=== PATIENT | male | born 1990 | race Hispanic/Latino ===

== ENCOUNTER 2023-04-11 18:39 | Emergency (ER) | payer SELFPAY ==
[2023-04-11 18:42] VITALS: BP 148/86; PULSE 72; RESP 18; TEMP 36.5; O2SAT 99
[2023-04-11 18:59] VITALS: BMI 29.8
[2023-04-11 19:03] VITALS: BP 137/78; PULSE 77; RESP 23
[2023-04-11] MEDS: predniSONE 20 MG Tablet 60 MG PO (19:18)
--- NOTE | 2023-04-11 19:24 | EDS_ITS ---
HPI History of Present Illness Chief Complaint: Numb/Ting Informant: patient and friend Narrative Narrative: Patient presents with left facial weakness. He he states it feels heavy. Of note, he brings a friend with him that speaks Micronesian and Croatian. He prefers the friend to translate rather than using translation software. We did offer the translation service though. Patient states that yesterday started feel that his left face felt heavy. The nurse did mention something about the eye but when I ask about this he just states that his face and eyelid feel heavy. He is not having visual pain or visual loss at this time. No headache. No numbness tingling weakness anywhere else in his body. He does not have history of high blood pressure stroke diabetes, clotting abnormalities or strong family history of strokes or the above illness. He has suffered no trauma. He does not feel sick. He has not seen any rashes. Nothing really makes his symptoms better or worse. PFSH PFS Medical History no medical history Home Medications acyclovir 400 mg tablet 400 mg PO .5 times daily 7 days #35 tabs 04/11/23 [Rx Last Taken Unknown] prednisone 5 mg tablet 25 mg PO BID 10 days #100 tabs 04/11/23 [Rx Last Taken Unknown] Allergy/AdvReac Type Severity Reaction Status Date / Time No Known Allergies Allergy Verified 04/11/23 18:40 Family History no significant family his Surgical History no surgical history Social History Smoking Status: Never smoker ROS ROS ED ROS Narrative A complete review of systems was performed and is negative except as documented in the history of present illness. Some specific details below. Constitutional: No recent fevers or chills. No rigors. Patient has not generally felt ill. EYE: No discharge, visual complaints, or pain. He has a heavy feeling on the left side of his face and eyelid. ENT: He does have the heaviness on the left side of the face but no difficulty swallowing. No swelling. No sinus pressure or pain. No nasal discharge. No change in hearing. No ear pain. CV: No chest pain, pressure or aching. No palpitations or irregular beats. Patient has not been presyncopal or syncopal. No history of irregular heart rhythms. Respiratory: No trouble breathing. No cough. No wheezing. No sputum production. No pain with breathing. GI: No abdominal pain. No nausea vomiting diarrhea. No blood in stool. : No frequency dysuria or hematuria. Musculoskeletal: No recent trauma. No pains. No swelling. Skin: No rash. Nondiaphoretic. No vesicles Neuro: See history of present illness. Endocrine: No polyuria or polydipsia. EXAM Physical Exam Narrative Exam Narrative: Patient awake alert sitting comfortably in bed no acute distress. HEENT does show left-sided facial weakness. But this does appear to involve the forehead. What complicates this is that he has a scar that crosses the middle of his forehead. But he still has obvious wrinkling of the right and none on the left. He can close the eyelid fully but it naturally sits open. Eye: He can close the eye fully but naturally sits open but there is no injection or erythema. No pain with motion and no limitation with motion. Neck shows no bruit. No pain with motion Lungs are clear bilaterally and saturations are normal at 99% on room air showing no hypoxia. Heart: Regular no murmur. Rate is normal. No ectopy. Peripheral pulses are normal x4. Abdomen is soft completely nontender. Skin shows no rash including none on the face or ear. Const Vital Signs: 04/11/23 18:42 04/11/23 19:03 Temperature 97.7 F L Temperature Source Temporal Pulse Rate 72 77 Respiratory Rate 18 23 H Blood Pressure 148/86 H 137/78 H Blood Pressure Mean 106 97 Pulse Ox 99 Oxygen Delivery Method Room Air MDM MDM MDM Narrative Medical decision making narrative: My independent interpretation of the patient's CT of the head without contrast shows no mass bleeding or signs of stroke. Final reading by radiology is normal unenhanced CT scan of the brain. I again explained to the patient and his friend and had it translated that he needs to tape the eye closed anytime he goes to sleep or might go to sleep. This was explained when I first saw him and I explained it again. I explained that this is critically important because it can prevent scarring and potential blindness of that eye. I will get him on acyclovir and prednisone. His symptoms started a little over a day ago so I think starting the meds are still appropriate. Radiography Diagnostic Testing: Clinical Impression(s) from Imaging Studies Brain CT 04/11/23 19:30 IMPRESSION: Normal unenhanced CT scan of the brain. Electronically Signed: Rufus Castaneda MD at 19:52 EDT , Discharge Plan Triage Chief Complaint: Numb/Ting ED Provider: Babatunde Segovia Dx/Rx/DC Orders Clinical Impression: Burnett's palsy Instructions: ED Burnett's Palsy Prescriptions: New prednisone 5 mg tablet 25 mg PO BID 10 Days Qty: 100 0RF acyclovir 400 mg tablet 400 mg PO .5 times daily 7 Days Qty: 35 0RF Rx Instructions: 1 tablet 5 times daily for 7 days Primary Care Provider: Care Physician,No Primary Referrals: Sophie Cantu MD [Med Staff - Positive Printer Operator] - 3-5 Days if not improving Activity Restrictions/Additional Instructions: Make sure that you take the left eyelid closed anytime you sleep to avoid drying of the eye and potential scarring and blindness. Print Language: Micronesian Disposition Disposition: Home, Self Care
--- NOTE | 2023-04-11 19:30 | CT_ITS ---
STUDY: CT BRAIN WITHOUT CONTRAST REASON FOR EXAM: Male, 33 years old. Left facial weakness RADIATION DOSAGE (If Supplied By Facility): CTDIvol = ( 44.99 ) mGy, DLP = ( 863.60 ) mGycm TECHNIQUE: Transaxial CT imaging of the brain was performed without administration of intravenous contrast material. Individualized dose optimization techniques were used for this CT. COMPARISON: No relevant priors. FINDINGS: Normal soft tissue structures. Normal calvarium. Normal size ventricles and extra-axial spaces for the patient''s age. Normal white matter tracts of the cerebral hemispheres. Normal basal ganglia and thalami. Normal brainstem. Normal cerebellum. There is no intracranial hemorrhage. There are no findings of an acute ischemic infarction. Normal visualized paranasal sinuses. CT/Brain/Head without Contrast IMPRESSION: Normal unenhanced CT scan of the brain. Electronically Signed: Rufus Castaneda MD at 19:52 EDT ,
[2023-04-11] MEDS: Acyclovir 200 MG Capsule 400 MG PO (19:52)
== END 2023-04-11 21:00 | disposition home or self-care (01) ==
LOC: ED 20:08
PROVIDERS: Emergency Provider Emergency Medicine; Visit Provider Emergency Medicine
DX: G51.0 Bell's palsy (principal)
CPT/HCPCS: 70450; 99282; A4216